=== PATIENT | male | born 1960 | race Caucasian/White ===

== ENCOUNTER → 2019-02-08 07:05 | Outpatient (CLI) | payer BC, SELFPAY ==
--- NOTE | 2019-02-08 07:10 | NM_ITS ---
CARDIOLITE SPECT MYOCARDIAL PERFUSION LEXISCAN, REST AND STRESS: History: History of LA, hypertension, hyperlipidemia, tobacco use and fatigue Procedure: Patient exercised on Tano protocol 7 minutes, resting heart rate was 74 bpm resting blood pressure 158/95, with exercise maximum heart rate achieved was 1 22 bpm which is less than 85% of the maximum predicted heart rate and a blood pressure was 190/93. Test was started due to shortness of breath patient denied any complained of chest pain. Patient has good exercise capacity achieved 10.1mets of workload on treadmill, the blood pressure response to exercise was adequate. Patient did not achieve the target heart rate Electrocardiogram: Resting electrocardiogram showed sinus rhythm, with exercise there is less than 1.[address] segment depression noted from the baseline EKG. The EKG portion of the exercise Myoview is nondiagnostic as patient did not achieve the target heart rate. Cardiac stress and resting SPECT images: Cardiac stress and resting SPECT images were obtained using technetium 99 Myoview 32.3 mCi at stress and 10.1 mCi at rest. Gated SPECT further analysis of segmental wall motion and calculation of the ejection fraction also done. Cardiac stress and the suspect images show decreased tracer activity in the inferior and posterobasal wall partially improves on the resting images suggestive of Lexiscan scar, greater derived ejection fraction is 44% with moderate inferior wall. Right ventricle is normal size and contractility. Conclusion: 1. The EKG portion of the exercise Myoview is nondiagnostic as patient didn't achieve the target heart rate, patient has good exercise capacity achieved 10.1mets of workload on treadmill, the blood pressure response to exercise was adequate, test was started due to shortness of breath. 2. Scintigraphic evidence of involving the inferior and posterobasal wall, computer derived ejection fraction is 44% with segmental wall motion abnormality described above, right ventricle is normal size and contractility. 3. Abnormal exercise Myoview study.
--- NOTE | 2019-02-08 10:26 | HMH.ITSHM ---
Current Home Medications as stated by this patient Elaine Sarabia or renewals representative. []metoprolol asa
== END ==
PROVIDERS: PCP Nurse Practitioner; Visit Provider Internal Medicine
DX: I25.10 Atherosclerotic heart disease of native coronary artery without angina pectoris (principal); R07.9 Chest pain, unspecified; R06.02 Shortness of breath; E78.5 Hyperlipidemia, unspecified; I11.9 Hypertensive heart disease without heart failure
CPT/HCPCS: 78452; 93017; A9502

== ENCOUNTER 2019-02-13 08:22 | Day surgery (SDC) | payer BC, SELFPAY ==
[2019-02-13] VITALS (12 sets, daily range): BP systolic 125–165; BP diastolic 57–88; PULSE 69–93; RESP 16–20; O2SAT 95–98; BMI 27.9
--- NOTE | 2019-02-13 07:09 | IR_ITS ---
CARDIAC CATHETERIZATION DATE OF CATHETERIZATION:02/13/2019 11:33 AM PROCEDURES: 1. Left heart catheterization 2. Left ventriculogram 3. Selective coronary angiogram 4. Drug-eluting stent deployment to the mid LAD INDICATION FOR TEST: 1. Abnormal Myoview 2. Coronary artery disease 3. Angina pectoris Informed consent was obtained prior to the procedure. COMPLICATIONS: None ESTIMATED BLOOD LOSS: Less than 10 ml. TECHNIQUE: One percent lidocaine used to anesthetize the right anterior aspect of the wrist. The right radial artery was accessed via the Seldinger technique. A 6 Latvian sheath was placed in the right radial artery. 2.5 mg of verapamil, 800 mcg of nitroglycerin, 1mg Lidocaine and 5000 U Heparin were given through the arterial sheath. The trap catheter was also used to perform left heart catheterization, left ventriculogram and selective coronary angiogram. At the end of the procedure 4000 units of heparin was administered intravenously giving a therapeutic ACT. A JL 3.5 guide catheter was used intubate the left main artery and a BMW wire was placed distally in the LAD. A 2.5 x 15 mm resolute Empire stent was deployed at 20 jodie reducing the severe stenosis to 0%. MARY-3 flow was present before and after the procedure. At the end of the procedure the apparatus was removed the sheath was removed good hemostasis was achieved using TR banding patient was transferred to the postop holding area in stable condition ANGIOGRAPHIC RESULTS: 1. The left main artery normal 2. The left anterior descending artery has proximal 10-20% stenoses followed by mid vessel stent which is widely patent in the proximal segment but distal to this stent is an 80-90% concentric stenosis. The remaining LAD is normal 3. The circumflex artery is a large dominant vessel with mild 10% luminal irregularities. The first obtuse marginal artery is a large vessel and has proximal 30% stenosis 4. The right coronary artery is a vestigial nondominant vessel and normal 5. The KINNEY ventriculogram reveals normal 65% 6. The left ventricular end-diastolic pressure 10 mmHg IMPRESSION: 1. Severe mid LAD disease 2. Successful stenting of the mid LAD severe disease reduced to 0% with 1 drug-eluting stent 3. Normal ejection fraction 4. Normal left ventricular end-diastolic pressure PLAN: 1. Dual antiplatelet therapy 2. Avoidance of tobacco products 3. Cardiac rehabilitation 4. LDL less than 55 5. Aggressive risk factor modification
[2019-02-13 09:11] LABS: Basophils % 0.5 % (0.1-2.0); Eosinophils # 0.2 K/mm3 (0.0-0.4); Eosinophils % 2.6 % (0.1-12.0); Hematocrit 48.9 % (42.0-52.0); Hemoglobin 16.6 g/dL (14.1-18.0); Lymphocytes # 2.3 K/mm3 (0.7-4.5); Lymphocytes % 30.6 % (10-50); Mean Corpuscular Hemoglobin 31.2 pg (27.0-31.2); Mean Corpuscular Volume 91.7 fl (80-94); Monocytes # 0.5 K/mm3 (0.1-1.0); Monocytes % 6.9 % (1.7-9.3); Neutrophils # 4.5 K/mm3 (1.8-7.8); Neutrophils % 59.5 % (37.0-80.0); Platelet Count 270 K/mm3 (142-424); Red Blood Count 5.33 M/mm3 (4.60-6.20); Red Cell Distribution Width 13.2 % (11.5-17.5); White Blood Count 7.6 K/mm3 (4.8-10.8)
[2019-02-13 09:28] LABS: Anion Gap 11.3 mEq/L (5-15); Blood Urea Nitrogen 11 mg/dL (7-18); Calcium 9.1 mg/dL (8.5-10.1); Carbon Dioxide 30 mmol/L (21.0-32.0); Chloride 105 mmol/L (98-107); Creatinine Clearance Estimated 90 mL/min (50-200); Creatinine,Serum 1.22 mg/dL (0.70-1.30); Estimated Glomerular Filt Rate 61 ml/min (>60); GFR (African American) 74 ML/MIN (>60); Glucose 90 mg/dL (74-106); Potassium 4.3 mmoL/L (3.5-5.1); Sodium 142 mmol/L (136-145)
[2019-02-13 10:46] LABS: Alanine Aminotransferase 41 U/L (12-78); Alkaline Phosphatase 81 U/L (46-116); Aspartate Amino Transferase 22 U/L (15-37); Bilirubin,Direct 0.1 mg/dL (0.0-0.2); Bilirubin,Indirect 0.3 mg/dL (0.0-0.9); Bilirubin,Total 0.4 mg/dL (0.2-1.0); Chol/HDL Ratio 2.9 (1-3.5); Cholesterol 177 mg/dL (140-200); HDL Cholesterol 61 mg/dL (27-67); LDL Cholesterol 98 mg/dL (0-130); Total Protein,Serum 7.4 gm/dL (6.4-8.2); Triglycerides 91 mg/dL (30-200); VLDL Cholesterol 18 mg/dL (0-40)
[2019-02-13 12:55] LABS: CATHL Activated Clotting Time 347 SEC (74-125)
--- NOTE | 2019-02-13 13:57 | HMH.PHACLD ---
Elaine Sarabia has received discharge medication counseling on the following medications: BRILINTA AND LISINOPRIL. THESE PRESCRIPTIONS WERE SENT TO [facility] IN [place]. PATIENT HAD NO QUESTIONS AND VERBALIZED UNDERSTANDING. -AMY FUENTES, ÁNGELD
== END 2019-02-13 15:28 | disposition home or self-care (01) ==
LOC: CATHLAB 08:23
PROVIDERS: PCP Family Medicine; Visit Provider Internal Medicine
DX: R07.9 Chest pain, unspecified (principal); I25.118 Atherosclerotic heart disease of native coronary artery with other forms of angina pectoris; Z72.0 Tobacco use; I11.0 Hypertensive heart disease with heart failure; I50.9 Heart failure, unspecified
CPT/HCPCS: 80048; 80061; 80076; 85025; 85347; 92928; 93458; 99152; C1725; C1760; C1769; C1876; C9600; J1644; Q9967

== ENCOUNTER 2019-02-20 07:55 | Outpatient (RCR) | payer BC, SELFPAY | END 2019-03-29 15:44 | disposition home or self-care (01) | LOC: PT 07:55 | PROVIDERS: Visit Provider Internal Medicine | DX: Z98.61 Coronary angioplasty status (principal) | CPT/HCPCS: 93798 ==

== ENCOUNTER → 2019-02-20 08:39 | Outpatient (CLI) | payer BC, SELFPAY ==
[2019-02-20 08:57] LABS: Basophils # 0.1 K/mm3 (0-0.2); Basophils % 0.6 % (0.1-2.0); Eosinophils # 0.2 K/mm3 (0.0-0.4); Eosinophils % 2.6 % (0.1-12.0); Hematocrit 46.5 % (42.0-52.0); Hemoglobin 16.1 g/dL (14.1-18.0); Lymphocytes # 2.6 K/mm3 (0.7-4.5); Mean Corpuscular HGB Conc 34.6 g/dL (31.8-35.4); Mean Corpuscular Hemoglobin 31.7 pg (27.0-31.2); Mean Corpuscular Volume 91.8 fl (80-94); Mean Platelet Volume 6.8 fl (7.4-10.4); Monocytes # 0.5 K/mm3 (0.1-1.0); Monocytes % 5.2 % (1.7-9.3); Neutrophils # 5.8 K/mm3 (1.8-7.8); Neutrophils % 63.7 % (37.0-80.0); Platelet Count 273 K/mm3 (142-424); Red Blood Count 5.07 M/mm3 (4.60-6.20); Red Cell Distribution Width 13.2 % (11.5-17.5); White Blood Count 9.1 K/mm3 (4.8-10.8)
[2019-02-20 09:56] LABS: Alanine Aminotransferase 53 U/L (12-78); Alkaline Phosphatase 92 U/L (46-116); Anion Gap 11.6 mEq/L (5-15); Aspartate Amino Transferase 34 U/L (15-37); Bilirubin,Direct 0.2 mg/dL (0.0-0.2); Bilirubin,Indirect 0.5 mg/dL (0.0-0.9); Bilirubin,Total 0.7 mg/dL (0.2-1.0); Blood Urea Nitrogen 12 mg/dL (7-18); Calcium 9.2 mg/dL (8.5-10.1); Carbon Dioxide 28 mmol/L (21.0-32.0); Chloride 103 mmol/L (98-107); Chol/HDL Ratio 2.5 (1-3.5); Cholesterol 152 mg/dL (140-200); Creatinine,Serum 1.25 mg/dL (0.70-1.30); Estimated Glomerular Filt Rate 59 ml/min (>60); GFR (African American) 72 ML/MIN (>60); Glucose 91 mg/dL (74-106); HDL Cholesterol 60 mg/dL (27-67); LDL Cholesterol 69 mg/dL (0-130); Potassium 4.6 mmoL/L (3.5-5.1); Sodium 138 mmol/L (136-145); Total Protein,Serum 7.6 gm/dL (6.4-8.2); Triglycerides 116 mg/dL (30-200); VLDL Cholesterol 23 mg/dL (0-40)
== END ==
PROVIDERS: Visit Provider Internal Medicine
DX: Z95.5 Presence of coronary angioplasty implant and graft (principal); E78.5 Hyperlipidemia, unspecified; R06.02 Shortness of breath; F17.200 Nicotine dependence, unspecified, uncomplicated
CPT/HCPCS: 36415; 80048; 80061; 80076; 85025

== ENCOUNTER → 2019-05-16 07:04 | Outpatient (CLI) | payer BC, SELFPAY ==
[2019-05-16 09:07] LABS: Anion Gap 16.5 mEq/L (5-15); Blood Urea Nitrogen 11 mg/dL (7-18); Calcium 9.2 mg/dL (8.5-10.1); Carbon Dioxide 24 mmol/L (21.0-32.0); Chloride 105 mmol/L (98-107); Creatinine,Serum 1.21 mg/dL (0.70-1.30); Estimated Glomerular Filt Rate 61 ml/min (>60); GFR (African American) 74 ML/MIN (>60); Glucose 98 mg/dL (74-106); Potassium 4.5 mmoL/L (3.5-5.1); Sodium 141 mmol/L (136-145)
[2019-05-16 09:51] LABS: Alanine Aminotransferase 39 U/L (12-78); Albumin Level 3.6 gm/dL (3.4-5.0); Alkaline Phosphatase 91 U/L (46-116); Aspartate Amino Transferase 20 U/L (15-37); Bilirubin,Direct 0.1 mg/dL (0.0-0.2); Bilirubin,Indirect 0.4 mg/dL (0.0-0.9); Bilirubin,Total 0.5 mg/dL (0.2-1.0); Chol/HDL Ratio 2.8 (1-3.5); Cholesterol 128 mg/dL (140-200); HDL Cholesterol 45 mg/dL (27-67); LDL Cholesterol 58 mg/dL (0-130); Total Protein,Serum 6.5 gm/dL (6.4-8.2); Triglycerides 126 mg/dL (30-200); VLDL Cholesterol 25 mg/dL (0-40)
== END ==
PROVIDERS: Urology; Visit Provider Physician Assistant
DX: I25.10 Atherosclerotic heart disease of native coronary artery without angina pectoris (principal); E78.5 Hyperlipidemia, unspecified; I11.9 Hypertensive heart disease without heart failure; R07.9 Chest pain, unspecified; R06.02 Shortness of breath; F17.200 Nicotine dependence, unspecified, uncomplicated
CPT/HCPCS: 36415; 80048; 80061; 80076

== ENCOUNTER → 2019-07-03 15:04 | Outpatient (CLI) | payer BC, SELFPAY ==
--- NOTE | 2019-07-03 15:09 | XR_ITS ---
PROCEDURE: XR CHEST 2V CLINICAL HISTORY: dyspnea COMPARISON: No exams were available for comparison FINDINGS: The cardiomediastinal silhouette and pulmonary vascularity are within normal limits. There is an oval mass in the right midlung at 4.4 x 2.6 cm. Calcified granulomas present in the left upper lobe. No effusions No acute bony abnormalities. IMPRESSION: Right middle lobe mass suspicious for malignancy. A rounded area of pneumonia would be included in the differential diagnosis. Recommend chest CT with contrast for further evaluation Dictated by: Ronny Sales MD 07/03/2019 15:32 Signed by: <Electronically signed by Ronny Sales MD in [place]> 07/03/2019 15:32
[2019-07-03 15:48] LABS: Basophils % 0.5 % (0.1-2.0); Eosinophils # 0.2 K/mm3 (0.0-0.4); Eosinophils % 2.1 % (0.1-12.0); Hematocrit 46.8 % (42.0-52.0); Hemoglobin 15.5 g/dL (14.1-18.0); Lymphocytes # 2.6 K/mm3 (0.7-4.5); Lymphocytes % 29.4 % (10-50); Mean Corpuscular HGB Conc 33.2 g/dL (31.8-35.4); Mean Corpuscular Hemoglobin 31.8 pg (27.0-31.2); Mean Corpuscular Volume 95.8 fl (80-94); Monocytes # 0.5 K/mm3 (0.1-1.0); Monocytes % 5.1 % (1.7-9.3); Neutrophils # 5.6 K/mm3 (1.8-7.8); Neutrophils % 62.9 % (37.0-80.0); Platelet Count 263 K/mm3 (142-424); Red Blood Count 4.88 M/mm3 (4.60-6.20)
[2019-07-03 17:07] LABS: D-Dimer < 100 ng/mL (0-400)
[2019-07-03 19:13] LABS: Alanine Aminotransferase 40 U/L (12-78); Alkaline Phosphatase 106 U/L (46-116); Anion Gap 13.5 mEq/L (5-15); Aspartate Amino Transferase 26 U/L (15-37); Bilirubin,Direct 0.1 mg/dL (0.0-0.2); Bilirubin,Indirect 0.3 mg/dL (0.0-0.9); Bilirubin,Total 0.4 mg/dL (0.2-1.0); Blood Urea Nitrogen 13 mg/dL (7-18); Calcium 9.6 mg/dL (8.5-10.1); Carbon Dioxide 30 mmol/L (21.0-32.0); Chloride 102 mmol/L (98-107); Chol/HDL Ratio 2.9 (1-3.5); Cholesterol 130 mg/dL (140-200); Creatinine,Serum 1.14 mg/dL (0.70-1.30); Estimated Glomerular Filt Rate 66 ml/min (>60); Free T4 (Free Thyroxine) 1.22 ng/dl (0.76-1.46); GFR (African American) 80 ML/MIN (>60); Glucose 77 mg/dL (74-106); HDL Cholesterol 45 mg/dL (27-67); LDL Cholesterol 62 mg/dL (0-130); Potassium 5.5 mmoL/L (3.5-5.1); Sodium 140 mmol/L (136-145); Thyroid Stimulating Hormone 1.91 uIU/ml (0.358-3.740); Triglycerides 115 mg/dL (30-200); VLDL Cholesterol 23 mg/dL (0-40)
== END ==
PROVIDERS: PCP Nurse Practitioner; Visit Provider Nurse Practitioner Family
DX: R06.02 Shortness of breath (principal); E78.2 Mixed hyperlipidemia; I11.9 Hypertensive heart disease without heart failure; I25.10 Atherosclerotic heart disease of native coronary artery without angina pectoris; F17.200 Nicotine dependence, unspecified, uncomplicated
CPT/HCPCS: 36415; 71046; 80048; 80061; 80076; 83880; 84439; 84443; 85025; 85378

== ENCOUNTER → 2019-07-10 13:37 | Outpatient (CLI) | payer BC, SELFPAY ==
--- NOTE | 2019-07-10 13:43 | CT_ITS ---
PROCEDURE: CT CHEST W CON CLINICAL HISTORY: lung mass Follow-up lung mass, abnormal chest x-ray, dyspnea COMPARISON: XR CHEST 2V from 07/03/2019 TECHNIQUE: Axial images obtained with sagittal and coronal reformats. All CT scans at the facility use one or more dose reduction, viz: automated exposure control, ma/kV adjustment per patient size (including targeted exams where dose is matched to indication, i.e. head), or iterative reconstruction technique. FINDINGS: No mediastinal or hilar mass or adenopathy is evident. There are few scattered small mediastinal and axillary lymph nodes but no dominant adenopathy. There are mild centrilobular emphysematous changes with scattered areas of scarring. A spiculated mass is present in the right middle lobe within the superior and posterior aspect of the right middle lobe abutting both the major and minor fissure. The mass measures 4.4 cm transverse, 3.7 cm AP, and 2.8 cm cephalad caudad.. The margins are spiculated. There is some minimal calcification or intense enhancement within the superior aspect of the mass centrally. There is nodularity along the superior aspect of the mass suggesting extension into the inferior aspect of the right upper lobe. There is a calcified granuloma in the left upper lobe. No effusions evident. The right middle lobe mass does not contain air bronchograms. Upper abdominal images are unremarkable. The entire liver is not imaged. The adrenal glands are also not completely imaged. No bony destructive process evident. No evidence of aortic aneurysm or central pulmonary embolus. IMPRESSION: 1. Suspicious 4.4 x 3.7 x 2.8 cm spiculated right middle lobe mass corresponding to the radiographic abnormality. The lesion does contain some calcification however this lesion is suspicious for neoplasm. This should be accessible for bronchoscopy directed biopsy. 2. No mediastinal or hilar adenopathy. Dictated by: Ronny Sales MD 07/11/2019 09:50 Electronically signed by Ronny Sales MD in [place] 07/11/2019 09:50
[2019-07-10 14:11] LABS: Anion Gap 11.4 mEq/L (5-15); Blood Urea Nitrogen 11 mg/dL (7-18); Calcium 8.9 mg/dL (8.5-10.1); Carbon Dioxide 29 mmol/L (21.0-32.0); Chloride 102 mmol/L (98-107); Creatinine,Serum 1.14 mg/dL (0.70-1.30); Estimated Glomerular Filt Rate 66 ml/min (>60); GFR (African American) 80 ML/MIN (>60); Glucose 92 mg/dL (74-106); Potassium 4.4 mmoL/L (3.5-5.1); Sodium 138 mmol/L (136-145)
== END ==
PROVIDERS: Visit Provider Nurse Practitioner Family
DX: R91.8 Other nonspecific abnormal finding of lung field (principal); R07.9 Chest pain, unspecified; R06.02 Shortness of breath; E78.5 Hyperlipidemia, unspecified; E87.5 Hyperkalemia; I11.9 Hypertensive heart disease without heart failure; I25.10 Atherosclerotic heart disease of native coronary artery without angina pectoris; I51.9 Heart disease, unspecified; R94.39 Abnormal result of other cardiovascular function study; F17.200 Nicotine dependence, unspecified, uncomplicated
CPT/HCPCS: 36415; 71260; 80048; Q9967

== ENCOUNTER → 2019-07-19 07:02 | Outpatient (CLI) | payer BC, SELFPAY ==
--- NOTE | 2019-07-19 | CA_ITS ---
APPROVED REPORT Exam: Exercise Treadmill Technologist: robina pollard, Ht: 6 ft 1 in Wt: 209 lbs BSA: 2.19 m2 HR: 74 bpm BP: 144/82 mmHg Rhythm: NSR Indications: CP, SOB Medical History Medical History: HTN, Hyperlipidemia Medications: Metoprolol,,,,, Asa,,,,, Losartan,,,,, Atorvastatin,,,,, Nicotine patch,,,,, Allergies: No known drug allergies Cardiac Risk Factors: HTN, Hyperlipidemia, FHX of CAD, Smoking Stress Test Details Test: Roberto HR Resting HR: 84 bpm Max Heart Rate (APMHR): 161 bpm Max HR Achieved: 136 bpm Target HR (85% APMHR): 136 bpm % of APMHR: 84 Recovery HR: 117 bpm BP Resting BP: 144.0/82.0 mmHg Max BP: 196.0/70.0 mmHg Recovery BP: 196.0/70.0 mmHg ECG Resting ECG: NSR Clinical Exercise duration: 07:30 min Highest Stage Achieved: Exercise capacity: 10.1 METs Stress ECG Conclusion EXERCISED 7:30 ON ROBERTO PROTOCOL WITH MAX HEART RATE OF 131 WHICH IS 81% OF PM FOR AGE. MAX BP 196/70. METS = 10.1. TEST STOPPED DUE TO SOA AND FATIGUE. NO CHEST PAIN. OCCASIONAL PVC. NORMAL ST RESPONSE TO EXERCISE. NORMAL GXT TO HEART RATE ACHIEVED(81% OF PM) MYOVIEW IMAGES REPORTED SEPARATELY Test Summary REST . . . . . . . Standing REST . . . . . . . Sitting REST . . . . . . . Standing REST . . . . . . . Sitting REST 05:46 0.0 0.0 84 . 144/ 82 . . Stage 1 01:00 10.0 1.7 94 . . . . Stage 1 02:00 10.0 1.7 100 . . . . Stage 1 03:00 10.0 1.7 106 . 170/ 75 . . Stage 2 01:00 12.0 2.5 112 . . . . Stage 2 02:00 12.0 2.5 115 . . . . Stage 2 03:00 12.0 2.5 121 . . . . Stage 3 . . . . . . . Cardiolite injected Stage 3 01:00 14.0 3.4 126 . 188/ 80 . . Stage 3 01:30 14.0 3.4 131 . 188/ 80 . Stop exercise at 07:30 RECOVERY 01:00 0.0 0.0 117 . 196/ 70 . . RECOVERY 02:00 0.0 0.0 107 . 196/ 70 . . RECOVERY 03:00 0.0 0.0 96 . 179/ 97 . . RECOVERY 04:00 0.0 0.0 86 . 179/ 97 . . RECOVERY 05:00 0.0 0.0 92 . 167/ 73 . . RECOVERY 06:00 0.0 0.0 88 . 167/ 73 . . RECOVERY 06:42 0.0 0.0 87 . 151/ 79 . . Electronically signed by : Preston Beal, 07/19/2019 17:03:22
--- NOTE | 2019-07-19 07:03 | NM_ITS ---
APPROVED REPORT Exam: Nuclear Stress Test Indication: chest pain, short of breath, fatigue Patient Location: Outpatient Stress Tech: Meg Winslow IN Tech:ANG Greco RT(R)(N) Ht: 6 ft 1 in Wt: 209 lbs BSA: 2.19 m2 HR: 74 bpm BP: 144/82 mmHg BMI: 27.5 History: chest pain, short of breath, fatigue Procedure: Patient exercised on Tano protocol 7 minutes and sec, resting heart rate 74 bpm, resting blood pressure 144/82 mmHg, with exercise maximum heart rate achived was 122 bpm which is 81 % of the maximum predicted heart rate and blood pressure was 188/80 mmHg. Test was stopped due to max effort. Patient denied any complaint of chest pain. Patient has Good exercise capacity, achieved 10.1 METs of workload on treadmill, the blood pressure response to exercise was Adequate.. Electrocardiogram Resting electrocardiogram showed sinus rhythm, with exercise there is less than 1.[address] segment depression noted from the baseline EKG. The EKG portion of the exercise Myoview is nondiagnostic as patient did not achieve the target heart rate. Cardiac Stress and Resting SPECT Images: Cardiac Stress and Resting SPECT images were obtained using technetium 99m Myoview 32.5 mCi stress and 10.57 mCi at rest. Gated SPECT with analysis of segmental wall motion and calculation of the ejection fraction also done. Cardiac stress and resting SPECT images show a fixed defect in the inferior wall with normal contractility and the gated SPECT is likely secondary to soft tissue attenuation, no reversible ischemia seen. Computer derived ejection fraction is over 65% with no regional wall motion abnormality, right ventricle is normal size and contractility. Conclusion: 1. The EKG portion of the exercise Myoview is nondiagnostic as patient did not achieve the target heart rate, patient had a good exercise capacity achieved 10.1 mets of workload on treadmill, the blood pressure response to exercise was adequate, there was no exercise-induced chest discomfort. 2. No obvious scintigraphic evidence of reversible ischemia seen at this level of exercise, computer derived ejection fraction is over 65% with no regional wall motion abnormality, right ventricle is normal size and contractility. Electronically signed by : Preston Beal, 07/19/2019 16:16:29
--- NOTE | 2019-07-19 14:24 | HMH.ITSHM ---
Current Home Medications as stated by this patient Elaine Sarabia or customer contact representative. []METOPROLOL LOSARTAN CLOPIDOGREL ATORVASTATIN ASA NICOTENE PATCH
== END ==
PROVIDERS: PCP Nurse Practitioner; Visit Provider Urology
DX: R06.02 Shortness of breath (principal); E78.2 Mixed hyperlipidemia; I11.9 Hypertensive heart disease without heart failure; I25.118 Atherosclerotic heart disease of native coronary artery with other forms of angina pectoris; R93.89 Abnormal findings on diagnostic imaging of other specified body structures; F17.200 Nicotine dependence, unspecified, uncomplicated
CPT/HCPCS: 78452; 93017; A9502

== ENCOUNTER → 2020-03-26 09:00 | Outpatient (CLI) | payer BC, SELFPAY | PROVIDERS: PCP Nurse Practitioner; Visit Provider Urology | DX: R42 Dizziness and giddiness (principal); I25.10 Atherosclerotic heart disease of native coronary artery without angina pectoris; C34.90 Malignant neoplasm of unspecified part of unspecified bronchus or lung; E78.2 Mixed hyperlipidemia; I11.9 Hypertensive heart disease without heart failure | CPT/HCPCS: 93270 ==

== ENCOUNTER → 2020-04-15 09:58 | Outpatient (CLI) | payer BC, SELFPAY ==
--- NOTE | 2020-04-15 10:00 | CA_ITS ---
APPROVED REPORT Hand I Thermal Cutter: JOSÉ Laterality: Bilateral Study Quality: Good Indications: dizziness,CAD Doppler Spectral Velocity Analysis dICA (R) 108.50/29.30 cm/s dICA (L) 87.90/30.00 cm/s Traci (R) 137.60/54.00 cm/s Traci (L) 94.70/32.00 cm/s pICA (R) 97.70/37.30 cm/s pICA (L) 120.20/31.80 cm/s dCCA (R) 87.80/17.60 cm/s dCCA (L) 91.50/20.20 cm/s pCCA (R) 116.90/20.00 cm/s pCCA (L) 87.90/18.70 cm/s Vert (R) 45.70/10.80 cm/s Vert (L) 44.10/15.40 cm/s ICA/CCA 1.60 ICA/CCA 1.30 Conclusion Duplex evaluation demonstrates stenosis of the right proximal internal carotid artery in the range of 20-49% with PSV <140 cm/sec, EDV <100 cm/sec, and IC/CC Ratio <4.0.Duplex evaluation demonstrates stenosis of the left proximal internal carotid artery in the range of 20-49% with PSV <140 cm/sec, EDV <100 cm/sec, and IC/CC Ratio <4.0.Antegrade flow seen bilateral vertebral arteries. Electronically signed by : Ronny Sales MD 04/15/2020 17:20:00
== END ==
PROVIDERS: PCP Nurse Practitioner; Visit Provider Urology
DX: R42 Dizziness and giddiness (principal); I25.10 Atherosclerotic heart disease of native coronary artery without angina pectoris; C34.90 Malignant neoplasm of unspecified part of unspecified bronchus or lung; E78.2 Mixed hyperlipidemia; I11.9 Hypertensive heart disease without heart failure
CPT/HCPCS: 93306; 93880

== ENCOUNTER → 2020-04-23 08:34 | Outpatient (CLI) | payer BC, SELFPAY ==
--- NOTE | 2020-04-23 08:44 | XR_ITS ---
PROCEDURE: XR CHEST 2V CLINICAL HISTORY: CHEST PAIN COMPARISON: XR CHEST 2V from 07/03/2019 CT CHEST W CON from 07/10/2019 FINDINGS: Mild degenerative thoracic scoliosis and moderate pulmonary emphysematous changes are again noted. There is some a scar-like infiltrates within the right mid and lower lung holloway. Cardiac silhouette and soft tissues are unremarkable. There is a stable 5 millimeter calcified granuloma in the left upper lobe IMPRESSION: COPD, right middle lobe and right lower lobe scarring Dictated by: Jagdish Alvarez 04/23/2020 09:23 Electronically signed by Jagdish Alvarez in [place] 04/23/2020 09:23
== END ==
PROVIDERS: PCP Nurse Practitioner; Visit Provider Nurse Practitioner
DX: R07.9 Chest pain, unspecified (principal)
CPT/HCPCS: 71046

== ENCOUNTER → 2020-06-30 11:04 | Outpatient (CLI) | payer BC, SELFPAY ==
--- NOTE | 2020-06-30 | CA_ITS ---
APPROVED REPORT Exam: Exercise Treadmill Technologist: Samira Mejía Ht: 6 ft 1 in Wt: 205 lbs BSA: 2.17 m2 HR: 76 bpm BP: 145/81 mmHg Indications: CAD Medical History Medications: Aspirin,,,,, Metoprolol,,,,, Losartan,,,,, Atorvastatin,,,,, HCTZ,,,,, CloPIdogrel,,,,, DilTiazem,,,,, Stress Test Details Test: Tano HR Resting HR: 83 bpm Max Heart Rate (APMHR): 160 bpm Max HR Achieved: 142 bpm Target HR (85% APMHR): 136 bpm % of APMHR: 88 Recovery HR: 90 bpm BP Resting BP: 145.0/81.0 mmHg Max BP: 145.0/81.0 mmHg Recovery BP: 150.0/82.0 mmHg ECG Clinical Exercise duration: 06:20 min Highest Stage Achieved: Exercise capacity: 7.0 METs Stress ECG Conclusion Resting ECG: Normal sinus rhythm Patient walked 6:20 on Tano Protocol. Test stopped due to shortness of air. Symptoms: Shortness of Air. No chest pain. Arrhythmias/Ectopy: PVC's, Rare couplet. ST-T Changes: < 1.[address] segment changes. Conclusion: EKG portion of the exercise Myoview is negative for ischemia. No chest pain or ST segment changes. Test Summary REST . . . . . . . Sitting REST 06:08 0.0 0.0 83 . 145/ 81 . . Stage 1 01:00 10.0 1.7 103 . . . . Stage 1 02:00 10.0 1.7 114 . . . . Stage 1 03:00 10.0 1.7 115 . 132/ 84 . . Stage 2 01:00 12.0 2.5 120 . . . . Stage 2 02:00 12.0 2.5 131 . . . . Stage 2 . . . . . . . Myoview Injected Stage 2 03:00 12.0 2.5 137 . 142/ 86 . . Stage 3 00:20 14.0 3.4 141 . . . Stop exercise at 06:20 RECOVERY 00:21 0.0 1.2 140 . . . . Electronically signed by : Preston Beal, 06/30/2020 18:16:58
--- NOTE | 2020-06-30 11:04 | NM_ITS ---
APPROVED REPORT Exam: Nuclear Stress Test Indication: short of breath..palpitations..fatigue Patient Location: Outpatient Stress Tech: Samira Mejía [place] Tech:Emperatriz AustinANG RT(R)(N) Ht: 6 ft 1 in Wt: 205 lbs HR: 76 bpm BP: 145/81 mmHg BSA: 2.17 m2 BMI: 27.0 History: short of breath..palpitations..fatigue Procedure: Patient exercised on Tano protocol 6.20 minutes and sec, resting heart rate 76 bpm, resting blood pressure 132/81 mmHg, with exercise maximum heart rate achived was 142 bpm which is Greater than 85 % of the maximum predicted heart rate and blood pressure was 148/86 mmHg. Patient denied any complaint of chest pain. Patient has Adequate exercise capacity, achieved 7.0 METs of workload on treadmill, the blood pressure response to exercise was Adequate. Electrocardiogram Resting electrocardiogram sinus showed sinus rhythm, with exercise there is less than 1.[address] segment depression noted from the baseline EKG. The EKG portion of the exercise Myoview is negative for ischemia. Cardiac Stress and Resting SPECT Images: Cardiac Stress and Resting SPECT images were obtained using technetium 99m Myoview 30.3 mCi stress and 10.39 mCi at rest. Gated SPECT for analysis of segmental wall motion and calculation of the ejection fraction also done. Cardiac stress and resting SPECT images show uniform myocardial activity without segmental perfusion abnormality, computer derived ejection fraction is over 65% with no regional wall motion abnormality, right ventricle is normal size and contractility. Conclusion: 1. The EKG portion of the exercise Myoview is negative for ischemia, patient has adequate exercise capacity achieved 7.0 METs of workload on treadmill, the blood pressure response to exercise was adequate, there was no exercise-induced chest discomfort. 2. No scintigraphic evidence of reversible ischemia seen at this level of exercise, computer derived ejection fraction is over 65% with no regional wall motion abnormality, right ventricle is normal size and contractility. 3. Normal exercise Myoview study. Electronically signed by : Preston Beal, 06/30/2020 18:22:33
[2020-06-30 12:26] LABS: Anion Gap 10.7 mEq/L (5-15); Blood Urea Nitrogen 7 mg/dl (9-20); Calcium 9.5 mg/dl (8.4-10.2); Carbon Dioxide 30 mmol/L (22.0-30.0); Chloride 102 mmol/L (98-107); Estimated Glomerular Filt Rate 62 ml/min (>60); GFR (African American) 75 ML/MIN (>60); Glucose 100 mg/dl (74-100); Potassium 3.7 mmoL/L (3.5-5.1); Sodium 139 mmol/L (136-145)
--- NOTE | 2020-06-30 13:26 | HMH.ITSHM ---
Current Home Medications as stated by this patient Elaine Sarabia or sales promotion representative. [] metoprolol asa losartan lipitor plaVIX
== END ==
PROVIDERS: PCP Nurse Practitioner; Visit Provider Urology
DX: R42 Dizziness and giddiness (principal); I25.10 Atherosclerotic heart disease of native coronary artery without angina pectoris; I11.9 Hypertensive heart disease without heart failure; C34.90 Malignant neoplasm of unspecified part of unspecified bronchus or lung; E78.5 Hyperlipidemia, unspecified
CPT/HCPCS: 78452; 80048; 93017; A9502